=== PATIENT | female | born 1980 | race Two or more races ===

== ENCOUNTER 2022-07-08 01:49 | Emergency (ER) | payer BC ==
[~2022-07-08] VITALS: Ht 157.5 cm; Wt 79.4 kg
[2022-07-08] MEDS ORDERED: CEPHALEXIN500 MG PO (05:24)
== END 2022-07-08 05:41 ==
LOC: ER 01:49
DX: N39.0 Urinary tract infection, site not specified (principal); Z88.8 Allergy status to other drugs, medicaments and biological substances